=== PATIENT | female | born 1970 | race Caucasian/White ===

== ENCOUNTER 2021-04-26 10:37 | Day surgery (SDC) | payer BC ==
[~2021-04-26 10:37] MED LIST: Lactated Ringers 1,000 ML IV SCH; Sodium Chloride 0.9% 10 ML Syringe FLUSH PRN
[2021-04-26] MEDS ORDERED: Midazolam 1 MG/ML 2 ML SDV ONE (11:17)
[2021-04-26] MEDS ORDERED: Propofol 200 MG/20 ML SDV ONE (11:17)
--- NOTE | 2021-04-26 11:40 | PCM.PN ---
- General Info Date of Service: 04/26/21 - Review of Systems Systems Review Comment:: 50-year-old female here for screening colonoscopy. She denies any recent changes in bowel pattern. Her recent history and physical is reviewed and no significant changes are noted. She is medically stable to proceed today. I have discussed the proposed colonoscopy with the patient. Risks such as but not limited to bleeding and GI injury reviewed. She agrees to proceed. - Patient Data Vitals - Most Recent: Last Vital Signs Temp 97.2 F 04/26/21 10:56 Pulse 93 04/26/21 10:56 Resp 16 04/26/21 10:56 BP 135/85 04/26/21 10:56 Pulse Ox 98 04/26/21 10:56 Weight - Most Recent: 83.007 kg Lab Results Last 24 Hours: Laboratory Results - last 24 hr 04/26/21 Range/Units 10:45 Urine HCG, Qual Negative (NEGATIVE) Med Orders - Current: Current Medications Lactated Ringer's (Ringers, Lactated) 1,000 mls @ 50 mls/hr IV ASDIRECTED MILO Last Admin: 04/26/21 10:56 Dose: 50 mls/hr Documented by: Sodium Chloride (Sodium Chloride 0.9% 10 Ml Syringe) 10 ml FLUSH Q8HR PRN PRN Reason: keep vein open Discontinued Medications Midazolam HCl (Midazolam 1 Mg/Ml 2 Ml Sdv) Confirm Administered Dose 2 mg .ROUTE .STK-MED ONE Stop: 04/26/21 11:18 Propofol (Propofol 200 Mg/20 Ml Sdv) Confirm Administered Dose 400 mg .ROUTE .STK-MED ONE Stop: 04/26/21 11:18 - Patient Data Lab Results Last 24 hrs: Laboratory Results - last 24 hr 04/26/21 Range/Units 10:45 Urine HCG, Qual Negative (NEGATIVE) Sepsis Event Note - Focused Exam Vital Signs: Vital Signs Temp Pulse Resp BP Pulse Ox 04/26/21 10:56 97.2 F 93 16 135/85 98 - Problem List Review Problem List Initiated/Reviewed/Updated: Yes - My Orders Last 24 Hours: My Active Orders 04/26/21 Breakfast Nothing Per Oral Diet [DIET] 04/26/21 09:30 Lactated Ringers [Ringers, Lactated] 1,000 ml IV ASDIRECTED Sodium Chloride 0.9% [Saline Flush] 10 ml FLUSH Q8HR PRN 04/26/21 10:15 Peripheral IV Care [RC] . DIRECTED Peripheral IV Insertion Adult [OM.PC] Routine - Assessment Assessment:: Colon cancer screening - Plan Plan:: Colonoscopy
--- NOTE | 2021-04-26 12:11 | PCM.OPNOTE ---
- General Post-Op/Procedure Note Date of Surgery/Procedure: 04/26/21 Operative Procedure(s): Colonoscopy Findings: Normal Colon Pre Op Diagnosis: Colon cancer screening Post-Op Diagnosis: Normal Colon Anesthesia Technique: MAC Primary Surgeon: Roly Schmidt Pathology: none EBL in mLs: 0 Complications: None Condition: Good
--- NOTE | 2021-04-26 12:39 | OR ---
DATE OF SURGERY: 04/26/2021 SURGEON: Roly Schmidt MD PREOPERATIVE DIAGNOSIS: Colon cancer screening. POSTOPERATIVE DIAGNOSIS: Normal colon. OPERATION PERFORMED: Colonoscopy. INDICATIONS FOR SURGERY: This 50-year-old female was referred today for screening colonoscopy. She denies any recent change in bowel pattern. FINDINGS: The patient's colon appears normal. No polyps or visible signs of inflammation are seen. Her terminal ileum also appears normal. DESCRIPTION OF PROCEDURE: The patient was taken to the operating room. She was given intravenous sedation, and with her in the left lateral decubitus position, digital rectal exam was performed showing no rectal masses. The Olympus colonoscope was inserted into the rectum. Retroflexed examination of the rectal canal was performed. The scope was then carefully advanced under direct visualization through the entire length of the colon until the cecum was reached. Cecal acquisition was confirmed by noting the normal internal cecal anatomy including the appendiceal orifice and the ileocecal valve. The light was also noted to transilluminate the abdominal wall in the right lower quadrant. The ileocecal valve was cannulated and the terminal ileum examined and appeared normal. The scope was then slowly withdrawn, sequentially re- examining the colonic segments until the entire colon and rectum had been fully examined. The scope was removed and, the patient was taken from the operating room in satisfactory condition. ESTIMATED BLOOD LOSS: Zero. COMPLICATIONS: None. PROGNOSIS: Good. /[id number]/MODL
[2021-04-26 13:35] VITALS: BP 122/84; PULSE 80
== END 2021-04-26 13:22 | disposition home or self-care (01) ==
LOC: KA.SDS 10:37
PROVIDERS: ATTEND Surgery
DX: Z12.11 Encounter for screening for malignant neoplasm of colon (principal); I10 Essential (primary) hypertension; E78.00 Pure hypercholesterolemia, unspecified; G47.00 Insomnia, unspecified; N39.0 Urinary tract infection, site not specified; Z79.899 Other long term (current) drug therapy; Z98.890 Other specified postprocedural states
CPT/HCPCS: 00812; 81025; J2250; J2704; J7120